=== PATIENT | male | born 1985 | race Caucasian/White ===

== ENCOUNTER 2019-09-11 13:21 | Outpatient (CLI) | payer BC, SELFPAY ==
--- NOTE | 2019-09-11 13:37 | ECHO_ITS ---
Patient Info Name: Jose M Emerson Age: 34 years : 1985 Gender: Male Ht: 78 in Wt: 215 lbs BSA: 2.32 m2 HR: 43 bpm BP: 146 / 85 mmHg Technical Quality: Good Exam Date: 09/11/2019 1:45 PM Exam Location: [facility] Patient Status: Outpatient Admit Date: 09/11/2019 Staff Ordering Physician: Neal Lewis MD Fulfillment Representative: Kate Fraser RDCS Attending Provider: Neal Lewis MD Referring Physician: Debbie BLANTON; Exam Type: CA echo doppler color flow Study Info Indications R00.0 - Tachycardia, unspecified Complete two-dimensional, color flow and Doppler transthoracic echocardiogram is performed. Summary 1. Left ventricular chamber dimension is mildly enlarged. 2. Left ventricular systolic function is normal, estimated at 60-65%. 3. There is mildly increased left ventricular wall thickness. 4. The left ventricular diastolic function is normal. 5. E/e' 6 is not elevated. 6. Global longitudinal strain is normal at -22.2%. 7. Left atrial chamber dimension is mildly enlarged. 8. There is trace tricuspid valve regurgitation. 9. No pulmonary hypertension, estimated pulmonary arterial systolic pressure is 26 mmHg. Left Ventricle E/e' 6 is not elevated. Global longitudinal strain is normal at -22.2%. Left ventricular chamber dimension is mildly enlarged. Left ventricular systolic function is normal, estimated at 60-65%. There is mildly increased left ventricular wall thickness. The left ventricular diastolic function is normal. Right Ventricle Right ventricular chamber dimension is normal. Right ventricular systolic function is normal. Left Atria Left atrial chamber dimension is mildly enlarged. Right Atria Right atrial chamber dimension is normal. Aortic Valve The aortic valve is trileaflet. There is no aortic valve stenosis. There is no aortic valve regurgitation. Pulmonic Valve There is no pulmonic regurgitation. Mitral Valve There is no mitral valve stenosis. There is no mitral valve regurgitation. Tricuspid Valve There is trace tricuspid valve regurgitation. No pulmonary hypertension, estimated pulmonary arterial systolic pressure is 26 mmHg. Pericardium/Pleural There is no pericardial effusion. Inferior Vena Cava Normal inferior vena cava with >50% collapse upon inspiration consistent with normal right atrial pressure, 5 mmHg. Aorta The aortic root size at the sinus of Valsalva is normal. Left Ventricular Outflow Tract Name Value Normal LVOT 2D LVOT Diameter 2.2 cm LVOT Doppler LVOT Peak Gradient 7 mmHg LVOT Mean Gradient 4 mmHg LVOT VTI 31 cm LVOT VTI/AV VTI Ratio 0.9 LVOT Stroke Volume 114 ml LVOT CO 5.2 l/min LVOT CI 2.3 l/min/m2 Pulmonic Valve Name Value Normal
== END 2019-09-11 13:22 | disposition home or self-care (01) ==
PROVIDERS: PCP Family Medicine; Visit Provider Family Medicine
DX: R00.0 Tachycardia, unspecified (principal)
CPT/HCPCS: 93306